=== PATIENT | female | born 1950 | race Caucasian/White ===

== ENCOUNTER 2021-12-26 12:03 | Emergency (ER) | payer OTHER, MEDICARE | END 2021-12-26 12:56 | disposition home or self-care (01) | LOC: NAV ERS 12:03 | DX: S01.112A Laceration without foreign body of left eyelid and periocular area, initial encounter (principal); E78.5 Hyperlipidemia, unspecified; I10 Essential (primary) hypertension; E03.9 Hypothyroidism, unspecified; X58.XXXA Exposure to other specified factors, initial encounter | CPT/HCPCS: 12011 ==